=== PATIENT | female | born 1960 | race Caucasian/White ===

== ENCOUNTER 2018-10-06 10:56 | Emergency (ER) | payer BC ==
[~2018-10-06] VITALS: Ht 154.9 cm; Wt 64.5 kg
[2018-10-06] MEDS ORDERED: CARD120T4 PO (11:13)
[2018-10-06] MEDS ORDERED: LORA0.5T11 PO (11:13)
[2018-10-06 11:28] LABS: BASO # 0.1 10^3/uL (0.0-0.2); EOS # 0.5 10^3/uL (0.0-0.50); EOS % 5.6 % (0.0-3.0); HEMATOCRIT 46.4 % (36.0-47.0); HEMOGLOBIN 15.8 g/dl (12.0-15.5); LYMPH # 2.5 10^3/uL (1.5-4.5); LYMPH % 29.6 % (24.0-44.0); MEAN CORPUSCULAR HEMOGLOBIN 31.4 pg (27.0-33.0); MEAN CORPUSCULAR HGB CONC 34.1 g/dl (32.0-36.5); MEAN CORPUSCULAR VOLUME 92.2 fl (80.0-96.0); MONO # 0.7 10^3/uL (0.0-0.8); NEUTROPHILS # 4.7 10^3/uL (1.8-7.7); NEUTROPHILS % 55.4 % (36.0-66.0); PLATELET COUNT, AUTOMATED 351 10^3/uL (150-450); RED BLOOD COUNT 5.03 10^6/uL (4.00-5.40); WHITE BLOOD COUNT 8.4 10^3/uL (4.0-10.0)
[2018-10-06] MEDS ORDERED: ADENOSINE 6MG/2ML INJECTION (J0153) IV STA (11:37)
[2018-10-06 11:39] LABS: INR 0.93; PROTHROMBIN TIME 12.2 SECONDS (11.8-14.0)
[2018-10-06] MEDS ORDERED: NS 1,000 ML IV SCH (11:51)
[2018-10-06 12:04] LABS: ALBUMIN 4.2 GM/DL (3.2-5.2); ALT/SGPT 40 U/L (12-78); BILIRUBIN,DIRECT < 0.1 MG/DL (0.0-0.2); BILIRUBIN,TOTAL 0.3 MG/DL (0.2-1.0); BLOOD UREA NITROGEN 14 MG/DL (7-18); CARBON DIOXIDE LEVEL 23 MEQ/L (21-32); CHLORIDE LEVEL 108 MEQ/L (98-107); CK-MB VALUE MASS < 1.0 NG/ML (<3.6); CPK CREATINE PHOSPHOKINASE 64 U/L (26-192); FREE T4 1.06 NG/DL (0.76-1.46); GLOMERULAR FILTRATION RATE 54.3 (>51); GLUCOSE, FASTING 140 MG/DL (70-100); MAGNESIUM LEVEL 1.8 MG/DL (1.8-2.4); MB/CK RELATIVE INDEX 1.56 (< OR =4); PHOSPHORUS LEVEL 2.7 MG/DL (2.5-4.9); POTASSIUM SERUM 3.9 MEQ/L (3.5-5.1); SODIUM LEVEL 140 MEQ/L (136-145); TOTAL PROTEIN 7.9 GM/DL (6.4-8.2); TROPONIN I < 0.02 NG/ML (< 0.10)
[2018-10-06] MEDS ORDERED: CART120C PO (12:40)
--- NOTE | 2018-10-06 12:48 | REP ---
Clinical: Chest pain and palpitations . Comparison: None . Technique: PA and lateral. Findings: The mediastinum and cardiac silhouette are normal. The lung [place] are clear and without acute consolidation, effusion, or pneumothorax. The skeletal structures are intact and normal. Impression: 1. No acute cardiopulmonary process. Electronically Signed by Pj Smith MD 10/06/2018 12:40 P
[2018-10-06 17:49] LABS: CK-MB VALUE MASS 1.5 NG/ML (<3.6); MB/CK RELATIVE INDEX 2.88 (< OR =4); TROPONIN I 0.05 NG/ML (< 0.10)
[2018-10-06 18:01] VITALS: BP 123/76
--- NOTE | 2018-10-07 07:12 | ECGEPIP ---
[facility] - ED Test Date: 2018-10-06 Pat Name: DONA COREAS Department: Room: - Gender: Female Dietary Manager: LISA : 1960 Requested By: CELESTE Mora Order Number: [id number] Reading MD: Shelli Andersen Measurements Intervals [place] Rate: 173 P: MO: 0 QRS: -2 QRSD: 99 T: 11 QT: 255 QTc: 434 Interpretive Statements SUPRAVENTRICULAR TACHYCARDIA MODERATE ST DEPRESSION NO PRIOR Electronically Signed on 10-07-2018 7:12:07 EDT by Shelli Andersen
--- NOTE | 2018-10-07 07:13 | ECGEPIP ---
[facility] - ED Test Date: 2018-10-06 Pat Name: DONA COREAS Department: Room: - Gender: Female Fixed Route Bus Operator: : 1960 Requested By: CELESTE Mora Order Number: [id number] Reading MD: Shelli Andersen Measurements Intervals [place] Rate: 108 P: 17 OR: 169 QRS: 2 QRSD: 81 T: 19 QT: 322 QTc: 432 Interpretive Statements SINUS TACHYCARDIA ABNORMAL RHYTHM ECG NSTTW abnormalities PRIOR SAME DAY SVT Electronically Signed on 10-07-2018 7:12:36 EDT by Shelli Andersen
--- NOTE | 2018-10-07 07:16 | ECGEPIP ---
[facility] - ED Test Date: 2018-10-06 Pat Name: DONA COREAS Department: Room: - Gender: Female Employment Adjudicator: : 1960 Requested By: CELESTE Mora Order Number: [id number] Reading MD: Shelli Andersen Measurements Intervals [place] Rate: 83 P: 9 [place]: 163 QRS: 2 QRSD: 80 T: 11 QT: 354 QTc: 416 Interpretive Statements SINUS RHYTHM DECREASED RATE 10/06/18 10/06/18 11:52 Electronically Signed on 10-07-2018 7:16:12 EDT by Shelli Andersen
== END 2018-10-06 18:14 | disposition home or self-care (01) ==
LOC: M ED 10:56
DX: I47.1 Supraventricular tachycardia (principal); Z79.899 Other long term (current) drug therapy; Z88.0 Allergy status to penicillin; Z87.891 Personal history of nicotine dependence
CPT/HCPCS: 71046; 80048; 80076; 82550; 82553; 83735; 84100; 84439; 84443; 84484; 85025; 85610; 85730; 93005; 93041; 94760; 96361; 96374; 99285; J0153